=== PATIENT | male | born 1965 | race African-American/Black ===

== ENCOUNTER 2016-12-10 05:39 | Emergency (ER) | payer OTHER ==
[~2016-12-10] VITALS: Ht 165.1 cm; Wt 77.1 kg
[2016-12-10 07:59] VITALS: BP 149/94
== END 2016-12-10 08:43 | disposition home or self-care (01) ==
LOC: ER 05:47
DX: S01.81XA Laceration without foreign body of other part of head, initial encounter (principal); Y08.89XA Assault by other specified means, initial encounter; Y93.89 Activity, other specified; Y99.8 Other external cause status; Y92.89 Other specified places as the place of occurrence of the external cause